=== PATIENT | female | born 1940 | race Caucasian/White ===

== ENCOUNTER 2018-03-01 21:45 | Emergency (ER) | payer MEDICARE, OTHER ==
[2018-03-01] MEDS: ONDANSETRON (ODT) 4 MG TAB ODT (22:03)
[2018-03-01] MEDS: DIPHTH/TET/ACEL PERTUSS (ADULT) 0.5 ML VIAL IM* (22:04)
[2018-03-01] MEDS: morphine 4 MG/ML VIAL IM (22:04)
[2018-03-01] MEDS: BACITRACIN 0.9 GM OINT TOP (22:06)
[2018-03-01] MEDS: IBUPROFEN 600 MG TAB PO (23:55)
== END 2018-03-02 00:49 | disposition home or self-care (01) ==
LOC: E/R 03-02 00:49
DX: S80.11XA Contusion of right lower leg, initial encounter (principal); S93.402A Sprain of unspecified ligament of left ankle, initial encounter; I10 Essential (primary) hypertension; W22.8XXA Striking against or struck by other objects, initial encounter; Y92.9 Unspecified place or not applicable; Z79.84 Long term (current) use of oral hypoglycemic drugs; Z23 Encounter for immunization
CPT/HCPCS: 73610; 73610-RT; 90471; 90715; 93005; 96372; 99284-25

== ENCOUNTER → 2018-06-17 | Outpatient (CLI) | payer MEDICARE, OTHER | END | disposition home or self-care (01) | LOC: EKG 09:47 | DX: I73.9 Peripheral vascular disease, unspecified (principal) | CPT/HCPCS: 93306 ==